=== PATIENT | male | born 1940 ===

== ENCOUNTER → 2023-03-04 11:32 | Outpatient (CLI) | payer MEDICARE, OTHER, SELFPAY ==
--- NOTE | 2023-03-04 11:35 | DI.RAD.S_ITS ---
PROCEDURE: XR FINGER RT MIN 2V INDICATIONS: injury to right little finger TECHNIQUE: AP hand, 2 views of the 5th finger(s) acquired. COMPARISON: None. FINDINGS: Bones: No fractures or dislocations. No suspicious bony lesions. Arthritic PIP and DIP joint space narrowing with small marginal osteophytes present. Mild periarticular PIP soft tissue swelling. No fracture. Soft tissues: No suspicious soft tissue calcifications. IMPRESSION: Degenerative changes without fracture. Approved by: Alexis Weeks M.D. on 03/04/2023 at 17:39
[2023-03-04 12:37] LABS: Hemoglobin A1C% w Est Avg Glu 5.6 % (4.0-6.0)
[2023-03-04 12:40] LABS: Add Manual Diff / Slide Review NO; Basophils Absolute Auto 0 /uL (0-100); Basophils Percent Auto 0.8 % (0-2); Eosinophils Absolute Auto 100 /uL (0-450); Hematocrit 39.5 % (41-53); Hemoglobin 13.3 g/dL (13.5-17.5); Lymphocytes Absolute Auto 1200 /uL (1100-4500); Lymphocytes Percent Auto 27.7 % (25-40); Mean Corpuscular HGB Conc 33.8 % (30-36); Mean Corpuscular Hemoglobin 29.9 PG (26-34); Mean Corpuscular Volume 88.4 fL (80-100); Monocytes Absolute Auto 400 /uL (0-900); Monocytes Percent Auto 10.4 % (3-14); Neutrophils Absolute Auto 2500 /uL (1500-7000); Neutrophils Percent Auto 58.1 % (50-75); Platelet Count 178 X10^3/uL (150-400); Red Blood Cell Count 4.46 X10^6/uL (4.5-5.9); Red Cell Distribution Width 13.9 % (11.6-14.8); White Blood Cell Count 4.2 X10^3/uL (4.5-11.0)
[2023-03-04 12:43] LABS: Alanine Aminotransferase 27 IU/L (<50); Albumin 4.3 g/dL (3.5-5.0); Albumin Globulin Ratio 1.3 (1.0-2.8); Alkaline Phosphatase 62 U/L (38-126); Aspartate Aminotransferase 29 IU/L (17-59); BUN Creatinine Ratio 26.8 (6-22); Bilirubin Total 0.6 mg/dL (0.2-1.3); Blood Urea Nitrogen 30 mg/dL (9-20); Calcium 10.1 mg/dL (8.4-10.2); Carbon Dioxide 30 mmol/L (22-32); Chloride 104 mmol/L (98-107); Cholesterol 202 mg/dL (140-199); Estimated Glomerular Filt Rate > 60 mL/min (>60); Globulin 3.2 g/dL (1.7-4.1); Glucose 101 mg/dL (80-110); HDL Cholesterol 35 mg/dL (40-60); HEMOLYSIS < 15 (0-50); LDL Cholesterol Calculated 146 mg/dL (<100); Potassium 3.9 mmol/L (3.4-5.1); Sodium 140 mmol/L (137-145); Total Protein 7.5 g/dL (6.3-8.2); Triglycerides 107 mg/dL (35-150)
[2023-03-04 13:44] LABS: TSH w/ Reflex to FT4 1.55 uIU/mL (0.47-4.68)
== END ==
PROVIDERS: PCP Family Medicine; Referring Provider Family Medicine; Visit Provider Family Medicine
DX: M79.644 Pain in right finger(s) (principal); Z86.39 Personal history of other endocrine, nutritional and metabolic disease; I10 Essential (primary) hypertension; R60.0 Localized edema; Z86.79 Personal history of other diseases of the circulatory system
CPT/HCPCS: 36415; 73140; 80053; 80061; 83036; 84443; 85025

== ENCOUNTER → 2023-09-12 15:20 | Outpatient (CLI) | payer MEDICARE, OTHER, SELFPAY ==
[2023-09-12 15:52] LABS: Add Manual Diff / Slide Review NO; Basophils Absolute Auto 0 /uL (0-100); Basophils Percent Auto 0.6 % (0-2); Eosinophils Absolute Auto 300 /uL (0-450); Eosinophils Percent Auto 3.4 % (2-4); Hematocrit 35.7 % (41-53); Hemoglobin 12.3 g/dL (13.5-17.5); Lymphocytes Absolute Auto 2100 /uL (1100-4500); Lymphocytes Percent Auto 28.2 % (25-40); Mean Corpuscular HGB Conc 34.4 % (30-36); Mean Corpuscular Hemoglobin 30.2 PG (26-34); Mean Corpuscular Volume 87.9 fL (80-100); Monocytes Absolute Auto 700 /uL (0-900); Monocytes Percent Auto 9.8 % (3-14); Neutrophils Absolute Auto 4300 /uL (1500-7000); Platelet Count 220 X10^3/uL (150-400); Red Blood Cell Count 4.06 X10^6/uL (4.5-5.9); Red Cell Distribution Width 13.9 % (11.6-14.8); White Blood Cell Count 7.4 X10^3/uL (4.5-11.0)
[2023-09-12 16:29] LABS: Alanine Aminotransferase 27 IU/L (<50); Albumin 4.4 g/dL (3.5-5.0); Albumin Globulin Ratio 1.5 (1.0-2.8); Alkaline Phosphatase 75 U/L (38-126); Aspartate Aminotransferase 27 IU/L (17-59); Bilirubin Total 0.5 mg/dL (0.2-1.3); Blood Urea Nitrogen 35 mg/dL (9-20); Calcium 9.5 mg/dL (8.4-10.2); Carbon Dioxide 27 mmol/L (22-32); Chloride 104 mmol/L (98-107); Estimated Glomerular Filt Rate > 60 mL/min (>60); Globulin 2.9 g/dL (1.7-4.1); Glucose 93 mg/dL (80-110); HEMOLYSIS < 15 (0-50); Potassium 3.9 mmol/L (3.4-5.1); Sodium 139 mmol/L (137-145); Total Protein 7.3 g/dL (6.3-8.2)
[2023-09-12 16:51] LABS: TSH w/ Reflex to FT4 1.67 uIU/mL (0.47-4.68)
[2023-09-12 17:16] LABS: Vitamin B12 859 pg/mL (239-931)
[2023-09-12 17:20] LABS: Hep C Virus Ab w/Reflex Quant NEGATIVE s/c (NEGATIVE)
[2023-09-13 04:36] LABS: RPR Screen Non Reactive (Non Reactive)
[2023-09-13 14:13] LABS: Free Kappa Lt Chains, Serum 13.9 mg/L (3.3-19.4); Free Lambda Lt Chains,Serum 15.6 mg/L (5.7-26.3)
[2023-09-13 21:17] LABS: Hemoglobin A1C% w Est Avg Glu 5.6 % (4.0-6.0)
== END ==
PROVIDERS: PCP Family Medicine; Referring Provider Family Medicine; Visit Provider Family Medicine
DX: G62.9 Polyneuropathy, unspecified (principal); G60.9 Hereditary and idiopathic neuropathy, unspecified
CPT/HCPCS: 36415; 80053; 82607; 83036; 83516; 83883; 84443; 85025; 86592; 86803; 87535; 87538

== ENCOUNTER → 2024-02-27 11:02 | Outpatient (CLI) | payer MEDICARE, OTHER, SELFPAY ==
--- NOTE | 2024-02-27 11:04 | DI.RAD.S_ITS ---
PROCEDURE: XR HAND RT MIN 3V INDICATIONS: anatomic snuffbox tenderness, assess for fracture TECHNIQUE: 3 views of the hand(s) acquired. COMPARISON: None. FINDINGS: Bones: No fractures or dislocations. Osteoarthritic changes are noted throughout right hand and wrist joints with joint space narrowing, subchondral sclerosis. Subcortical cystic changes are noted at 1st CMC joint. No definite bony erosive changes. Carpal bones are normally aligned. No suspicious bony lesions. Soft tissues: No suspicious soft tissue calcifications. 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 No acute fracture or dislocation. No radiographic evidence of avascular necrosis. No definite bony erosive changes. Dictated by: Jeevan Francis M.D. on 02/27/2024 at 13:43 Approved by: Jeevan Francis M.D. on 02/27/2024 at 13:56
== END ==
PROVIDERS: PCP Family Medicine; Referring Provider Family Medicine; Visit Provider Family Medicine
DX: M19.041 Primary osteoarthritis, right hand (principal); M19.031 Primary osteoarthritis, right wrist; M79.643 Pain in unspecified hand
CPT/HCPCS: 73130

== ENCOUNTER 2024-03-09 10:54 | Emergency (ER) | payer MEDICARE, OTHER, SELFPAY ==
[2024-03-09] VITALS (11 sets, daily range): BP systolic 125–174; BP diastolic 59–119; PULSE 59–66; RESP 12–20; TEMP 36.7; O2SAT 92–96; BMI 33.9
--- NOTE | 2024-03-09 11:04 | DI.CT.S_ITS ---
PROCEDURE: CT HEAD/BRAIN WO CON INDICATIONS: dizziness and nausea TECHNIQUE: Noncontrast 4.5 mm thick angled axial sections acquired from the foramen magnum to the vertex, with coronal and sagittal reformats. For radiation dose reduction, the following was used: automated exposure control, adjustment of mA and/or kV according to patient size. COMPARISON: None. FINDINGS: Image quality: Diagnostic. CSF spaces: Basal cisterns are patent. No extra-axial fluid collections. The ventricles are symmetric in size and shape. Brain: No intracranial bleeds or masses. There is cerebral volume loss for age, with resultant ventricular and sulcal prominence. There are periventricular and deep white matter chronic small vessel ischemic changes. There is intracranial internal carotid artery atherosclerosis. Skull and face: Calvarium and visualized facial bones appear intact, without suspicious lesions. Sinuses: Visualized sinuses and mastoids are clear. IMPRESSION: No acute intracranial pathology. Dictated by: Lorenzo Ramos M.D. on 03/09/2024 at 12:15 Approved by: Lorenzo Ramos M.D. on 03/09/2024 at 12:15
--- NOTE | 2024-03-09 11:04 | EKG_ITS ---
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
--- NOTE | 2024-03-09 11:10 | ED_ITS ---
HPI - General Adult General Chief complaint: Dizziness Stated complaint: Dizzy, nausea Time Seen by Provider: 03/09/24 11:03 Source: patient Mode of arrival: Ambulatory History of Present Illness HPI narrative: Patient was an 83-year-old male. No history of CVA, arrhythmia, TIA, or heart attack. He has a history of hypertension and high cholesterol. Is here for evaluation of a couple days of dizziness. He describes it as an unsteadiness when he stands. It was not a vertigo sensation. Does have some sinus congestion. No sore throat. No chest pain. No shortness of breath. No numbness in his upper extremities. Has a history of neuropathy in his lower extremities and this is baseline for him. No rashes. Is have a slight headache. Has not tried anything for symptoms prior to arrival. Related Data Home Medications Medication Instructions Recorded Confirmed Atorvastatin Calcium (Lipitor) 10 mg PO Q DAY ##0 09/27/02/23/24 albuterol sulfate 90 mcg/actuation 2 puff inhalation Q4-6H PRN 01/19/23 02/23/24 aerosol inhaler (Ventolin HFA) gabapentin 600 mg tablet mg PO 09/12/23 02/23/24 Previous Rx's Medication Instructions Recorded amlodipine 5 mg tablet 5 mg PO DAILY #90 tabs 01/31/23 cetirizine 10 mg capsule (Zyrtec) 10 mg PO DAILY PRN allergy 06/15/23 symptoms #30 caps furosemide 40 mg tablet (Lasix) 40 mg PO DAILY #60 tabs 09/12/23 cyclobenzaprine 10 mg tablet 10 mg PO TID PRN muscle spasm #60 11/03/23 tabs omeprazole 40 mg capsule,delayed 40 mg PO BID #180 caps 11/08/23 release fluticasone propionate 50 1 spray intranasal BID #16 grams 01/19/24 mcg/actuation nasal spray,suspension (Flonase Allergy Relief) losartan 50 mg-hydrochlorothiazide 1 tab PO DAILY #90 tabs 01/31/24 12.5 mg tablet fluticasone 250 mcg-salmeterol 50 1 inh inhalation BID #60 ea 02/06/24 mcg/dose blistr powdr for inhalation colchicine 0.6 mg tablet 0.6 mg PO DAILY #90 tabs 02/23/24 naltrexone 50 mg tablet 12.5 mg (1/4 x 50 mg) PO DAILY #30 02/23/24 tabs zolpidem 10 mg tablet 10 mg PO BEDTIME PRN insomnia #30 02/23/24 tabs bupropion HCl 150 mg 24 hr tablet, 150 mg PO QAM #60 tabs 02/28/24 extended release (Wellbutrin XL) meclizine 25 mg tablet 25 mg PO BID PRN dizziness #10 tabs 03/09/24 Allergies Allergy/AdvReac Type Severity Reaction Status Date / Time No Known Allergies Allergy Verified 03/09/24 11:00 Review of Systems Review of Systems ROS Unobtainable: All systems reviewed & are unremarkable except as noted in HPI and below Patient History Medical History Insomnia Tenderness of anatomical snuffbox Obesity (BMI 30.0-34.9) Gout Knee pain Toenail deformity Peripheral neuropathy Esophageal web Barretts esophagus Postnasal drip Upper respiratory infection, acute (12/28/01) Pain in thoracic spine (01/22/02) Low back pain of thoracolumbar region with sciatica (01/04/02) Pain, joint, shoulder (12/28/01) Hyperlipidemia (04/19/02) Exam post high-risk rx (04/19/02) Dermatitis, unspecified (11/13/01) Cervicalgia (12/28/01) Asthma Foot pain Mumps Measles Chicken pox Surgical History (Updated 02/16/23 @ 21:49 by Ciera Sanchez) Anesthesia H/O right knee surgery History of throat surgery History of knee replacement Tumor of knee (~2006) Family History (Updated 02/16/23 @ 21:50 by Ciera Sanchez) Father Cancer History of heart disease Social History Smoking Status: Never smoker Smoking Status: Never smoker Exam Initial Vital Signs Initial Vital Signs: Vital Signs Temperature 98.1 F 03/09/24 10:55 Pulse Rate 66 03/09/24 10:55 Respiratory Rate 17 03/09/24 10:55 Blood Pressure 174/74 H 03/09/24 10:55 Pulse Oximetry 93 03/09/24 10:55 Oxygen Delivery Method Room Air 03/09/24 10:55 Const General: cooperative, comfortable and No ill appearing HENMT Head: normal to inspection and normocephalic Ears: hearing grossly normal bilaterally Eyes Pupils: PERRL EOM: EOM intact bilaterally Resp Effort & Inspection: normal respiratory effort Auscultation: clear to auscultation bilaterally Cardio Rate: regular rate Rhythm: regular rhythm GI Inspection: non-distended Skin General: no rashes or lesions noted Neuro General: patient alert, patient awake, patient oriented x3 and moves all extremities Cranial Nerves: CN's II-XI intact bilaterally Cognition: normal cognition Speech: speech normal Motor: muscle tone normal throughout Extrem General: capillary refill normal Course Orders Ordered: ED Orders 03/09/24 11:00 Complete Blood Count AUTO DIFF Stat Comprehensive Metabolic Panel Stat Lipase Stat Magnesium Stat Troponin & CK Cardiac Panel Stat 03/09/24 11:04 CT head/brain wo con Stat EKG-12 Lead Stat 03/09/24 12:24 MR stroke Stat Discontinued Medications Meclizine HCl (Meclizine Hcl 12.5 Mg Tablet) 25 mg PO NOW ONE Stop: 03/09/24 11:05 Last Admin: 03/09/24 11:16 Dose: 25 mg Documented By: BIJAL Ondansetron HCl (Ondansetron 4 Mg/2 Ml Inj) 4 mg IV NOW ONE Stop: 03/09/24 11:05 Last Admin: 03/09/24 11:16 Dose: 4 mg Documented By: BIJAL Vital Signs Vital signs: Vital Signs - 8 hr 03/09/24 10:55 03/09/24 10:59 03/09/24 11:00 Temperature 98.1 F Pulse Rate 66 Respiratory Rate 17 Blood Pressure 174/74 H 174/74 H 160/119 H Pulse Oximetry 93 Oxygen Delivery Method Room Air 03/09/24 11:00 03/09/24 11:30 03/09/24 11:31 Temperature Pulse Rate 65 60 Respiratory Rate 20 12 Blood Pressure 138/63 Pulse Oximetry 94 92 Oxygen Delivery Method 03/09/24 11:44 03/09/24 11:44 03/09/24 12:00 Temperature Pulse Rate 62 60 Respiratory Rate 12 14 Blood Pressure 165/68 H 142/65 H Pulse Oximetry 92 94 Oxygen Delivery Method 03/09/24 12:00 03/09/24 12:30 03/09/24 12:30 Temperature Pulse Rate 60 62 Respiratory Rate 14 Blood Pressure 156/67 H Pulse Oximetry 95 Oxygen Delivery Method 03/09/24 13:00 03/09/24 13:00 03/09/24 14:08 Temperature Pulse Rate 66 Respiratory Rate 14 18 Blood Pressure 136/62 Pulse Oximetry 94 Oxygen Delivery Method 03/09/24 14:08 03/09/24 14:30 03/09/24 14:30 Temperature Pulse Rate 59 L Respiratory Rate 18 Blood Pressure 137/59 L 125/59 L Pulse Oximetry 96 Oxygen Delivery Method Medical Decision Making Lab Data Lab results reviewed: Yes I reviewed the patient's lab results. 03/09/24 11:00 03/09/24 11:00 Labs: Lab Results 03/09/24 Range/Units 11:00 WBC 7.9 (4.5-11.0) X10^3/uL RBC 4.67 (4.5-5.9) X10^6/uL Hgb 14.0 (13.5-17.5) g/dL Hct 41.9 (41-53) % MCV 89.7 (80-100) fL MCH 29.9 (26-34) PG MCHC 33.4 (30-36) % RDW 14.4 (11.6-14.8) % Plt Count 189 (150-400) X10^3/uL Neut % (Auto) 68.8 (50-75) % Lymph % (Auto) 20.8 L (25-40) % Motley % (Auto) 9.3 (3-14) % Eos % (Auto) 0.5 L (2-4) % Baso % (Auto) 0.6 (0-2) % Neut # (Auto) 5400 (4953-1681) /uL Lymph # (Auto) 1600 (9626-4756) /uL Motley # (Auto) 700 (0-900) /uL Eos # (Auto) 0 (0-450) /uL Baso # (Auto) 100 (0-100) /uL Sodium 137 (137-145) mmol/L Potassium 3.9 (3.4-5.1) mmol/L Chloride 100 (98-107) mmol/L Carbon Dioxide 28 (22-32) mmol/L BUN 36 H (9-20) mg/dL Creatinine 1.49 H (0.66-1.25) mg/dL Estimated GFR 46 L (>60) mL/min BUN/Creatinine Ratio 24.2 H (6-22) Glucose 113 H (80-110) mg/dL Calcium 9.8 (8.4-10.2) mg/dL Magnesium 1.7 (1.6-2.3) mg/dL Total Bilirubin 0.7 (0.2-1.3) mg/dL AST 49 (17-59) IU/L ALT 63 H (<50) IU/L Alkaline Phosphatase 69 (38-126) U/L Total Creatine Kinase 111 (55-170) U/L Troponin I < 0.012 (0.01-0.034) ng/mL Total Protein 7.4 (6.3-8.2) g/dL Albumin 4.6 (3.5-5.0) g/dL Globulin 2.8 (1.7-4.1) g/dL Albumin/Globulin Ratio 1.6 (1.0-2.8) Lipase 68 (23-300) U/L Imaging Data CT scan - head: Radiologist's Impression: PROCEDURE: CT HEAD/BRAIN WO CON INDICATIONS: dizziness and nausea TECHNIQUE: Noncontrast 4.5 mm thick angled axial sections acquired from the foramen magnum to the vertex, with coronal and sagittal reformats. For radiation dose reduction, the following was used: automated exposure control, adjustment of mA and/or kV according to patient size. COMPARISON: None. FINDINGS: Image quality: Diagnostic. CSF spaces: Basal cisterns are patent. No extra-axial fluid collections. The ventricles are symmetric in size and shape. Brain: No intracranial bleeds or masses. There is cerebral volume loss for age, with resultant ventricular and sulcal prominence. There are periventricular and deep white matter chronic small vessel ischemic changes. There is intracranial internal carotid artery atherosclerosis. Skull and face: Calvarium and visualized facial bones appear intact, without suspicious lesions. Sinuses: Visualized sinuses and mastoids are clear. IMPRESSION: No acute intracranial pathology. Brain MRI: Radiologist's Impression: PROCEDURE: MR STROKE Pre- and post-contrast brain MRI, non-contrast brain MR angiogram, pre- and postcontrast neck MR angiogram INDICATIONS: dizziness and headache TECHNIQUE: Brain: Noncontrast axial T1 spin echo, axial T2 fast spin echo, sagittal and axial FLAIR, coronal T2 fast spin echo, axial gradient echo, axial diffusion and ADC through the brain. After the administration of contrast, axial 3D VIBE of the cranial vasculature and brain. Brain MRA: Non-contrast 3-D time of flight MR angiogram, with multiple dcoecdy-djmibtspa-ftgfavkkxr (MIP) reformats performed. Neck MRA: Axial and sagittal TruFISP through the neck. Coronal dynamic MR angiogram during administration of contrast in the arterial and venous phases, with 3- dimenstional nblmrna-xdfhelnqo-bdreonuzeu (MIP) reformats constructed from subtraction images. COMPARISON: [facility], CT, CT HEAD/BRAIN WO CON, 03/09/2024, 11:39. FINDINGS: Image quality: Excellent. BRAIN: CSF spaces: Ventricles are normal in size and shape. Basal cisterns are patent. No extra-axial fluid collections. Brain: No intracranial bleeds or mass effects. Ornelas-white matter interface is normal. Diffusion weighted images show no acute infarct. Age-related volume loss and mild, age-appropriate small-vessel ischemic change. Brainstem appears normal. Normal intravascular flow voids are present. No abnormal intracranial enhancement. Skull and face: Calvarial marrow signal is normal. Orbits appear normal. Sinuses: Sinuses and mastoids are clear. BRAIN MR ANGIOGRAM: Anterior circulation: Intracranial internal carotid arteries are normal in size and enhancement. The flow within the paired anterior cerebral arteries is normal and symmetric. The flow within the middle cerebral arteries is normal and symmetric. The anterior communicating artery is seen. No stenoses, occlusions, or aneurysms. Posterior circulation: The visualized portions of the vertebral arteries demonstrate normal caliber, and join to form a normal appearing basilar artery. The flow within the posterior cerebral arteries is normal and symmetric. No stenoses, occlusions, or aneurysms. NECK MR ANGIOGRAM: Carotids: Great vessels demonstrate a conventional anatomy as they arise from the aortic arch. The origins of the common carotid arteries appear patent. The calibers and courses of both common carotid arteries are normal. The bifurcation regions appear normal bilaterally. The internal carotid arteries demonstrate normal course and caliber. Posterior circulation: The origins of the vertebral arteries appear patent. More superior portions of both vertebral arteries demonstrate normal course and caliber, and join to form a normal appearing basilar artery. Miscellaneous: Subclavian arteries appear patent. Pre-contrast images through the neck show no soft tissue abnormalities. IMPRESSION: BRAIN MRI: No acute intracranial process. No acute stroke. Normal age-related findings. BRAIN MR ANGIOGRAM: No stenosis, aneurysm, occlusion, or focal filling defect. NECK MR ANGIOGRAM: Patent carotids. ECG Data Attestation: I personally reviewed and interpreted this ECG as follows: Interpretation: Sinus rhythm Ventricular rate of 62 [place] [address] QRS No ST T wave changes* MDM Narrative Medical decision making narrative: Workup here in the emergency department is fairly unremarkable. His head CT and also MR of his brain showed no signs of an acute intracranial pathology. His labs are unremarkable. Sinus rhythm on his EKG. Suspicion for a central neurologic process. No indication for admission in the hospital. He was having some URI symptoms. We discussed potentially trying an snsa-gue-hurqhsm antihistamine such as Claritin or Zyrtec and will also send home with a prescription for meclizine for symptom control. Advised that the patient contact his primary doctor for follow-up. He was given return precautions. He expressed understanding and agreement. Discharge Plan Departure Patient Disposition: Home Clinical Impression: Dizziness Instructions: DI for Dizziness-Nonvertigo Activity Restrictions/Additional Instructions: Continue to take all of your medications as directed. I do recommend that you start taking a antihistamine such as Claritin or Zyrtec. These medications can be purchased nraq-tby-[id number]. Contact your primary care doctor for a follow- up. Return to the emergency department for new or worsening symptoms. Prescriptions: New meclizine 25 mg tablet 25 mg PO BID PRN (Reason: dizziness) Qty: 10 0RF No Action Zyrtec 10 mg capsule 10 mg PO DAILY PRN (Reason: allergy symptoms) Qty: 30 0RF gabapentin 600 mg tablet PO furosemide [Lasix] 40 mg tablet 40 mg PO DAILY Qty: 60 3RF zolpidem 10 mg tablet 10 mg PO BEDTIME MDD 1 tablet daily PRN (Reason: insomnia) Qty: 30 2RF colchicine 0.6 mg tablet 0.6 mg PO DAILY Qty: 90 3RF naltrexone 50 mg tablet 12.5 mg PO DAILY Qty: 30 0RF Atorvastatin Calcium (Lipitor) 10 mg PO Q DAY Qty: 0 amlodipine 5 mg tablet 5 mg PO DAILY Qty: 90 1RF cyclobenzaprine 10 mg tablet 10 mg PO TID PRN (Reason: muscle spasm) Qty: 60 0RF omeprazole 40 mg capsule,delayed release(DR/EC) 40 mg PO BID MDD 2 tablets Qty: 180 4RF fluticasone propionate [Flonase Allergy Relief] 50 mcg/actuation spray,suspension 1 spray intranasal BID Qty: 16 3RF Rx Instructions: administer into each nostril losartan-hydrochlorothiazide 50-12.5 mg tablet 1 tab PO DAILY Qty: 90 4RF fluticasone propion-salmeterol 250-50 mcg/dose blister with device 1 inh inhalation BID Qty: 60 2RF bupropion HCl [Wellbutrin XL] 150 mg tablet extended release 24 hr 150 mg PO QAM Qty: 60 0RF albuterol sulfate [Ventolin HFA] 90 mcg/actuation HFA aerosol inhaler 2 puff inhalation Q4-6H PRN Referrals: Magaly Stinson MD [Primary Care Provider] - Stand Alone Forms: Patient Portal/API/Survey
[2024-03-09 11:14] LABS: Add Manual Diff / Slide Review NO; Basophils Absolute Auto 100 /uL (0-100); Basophils Percent Auto 0.6 % (0-2); Eosinophils Absolute Auto 0 /uL (0-450); Eosinophils Percent Auto 0.5 % (2-4); Hematocrit 41.9 % (41-53); Lymphocytes Absolute Auto 1600 /uL (1100-4500); Lymphocytes Percent Auto 20.8 % (25-40); Mean Corpuscular HGB Conc 33.4 % (30-36); Mean Corpuscular Hemoglobin 29.9 PG (26-34); Mean Corpuscular Volume 89.7 fL (80-100); Monocytes Absolute Auto 700 /uL (0-900); Monocytes Percent Auto 9.3 % (3-14); Neutrophils Absolute Auto 5400 /uL (1500-7000); Neutrophils Percent Auto 68.8 % (50-75); Platelet Count 189 X10^3/uL (150-400); Red Blood Cell Count 4.67 X10^6/uL (4.5-5.9); Red Cell Distribution Width 14.4 % (11.6-14.8); White Blood Cell Count 7.9 X10^3/uL (4.5-11.0)
[2024-03-09] MEDS: ONDANSETRON 4 MG/2 ML INJ IV (11:16)
[2024-03-09] MEDS: MECLIZINE HCL 12.5 MG TABLET 25 MG PO (11:16)
[2024-03-09 11:29] LABS: Alanine Aminotransferase 63 IU/L (<50); Albumin 4.6 g/dL (3.5-5.0); Albumin Globulin Ratio 1.6 (1.0-2.8); Alkaline Phosphatase 69 U/L (38-126); Aspartate Aminotransferase 49 IU/L (17-59); BUN Creatinine Ratio 24.2 (6-22); Bilirubin Total 0.7 mg/dL (0.2-1.3); Blood Urea Nitrogen 36 mg/dL (9-20); Calcium 9.8 mg/dL (8.4-10.2); Carbon Dioxide 28 mmol/L (22-32); Chloride 100 mmol/L (98-107); Creatine Kinase 111 U/L (55-170); Estimated Glomerular Filt Rate 46 mL/min (>60); Globulin 2.8 g/dL (1.7-4.1); Glucose 113 mg/dL (80-110); HEMOLYSIS < 15 (0-50); Lipase 68 U/L (23-300); Magnesium 1.7 mg/dL (1.6-2.3); Potassium 3.9 mmol/L (3.4-5.1); Sodium 137 mmol/L (137-145); Total Protein 7.4 g/dL (6.3-8.2)
[2024-03-09 11:41] LABS: Troponin I < 0.012 ng/mL (0.01-0.034)
--- NOTE | 2024-03-09 12:24 | DI.MRI.S_ITS ---
PROCEDURE: MR STROKE Pre- and post-contrast brain MRI, non-contrast brain MR angiogram, pre- and postcontrast neck MR angiogram INDICATIONS: dizziness and headache TECHNIQUE: Brain: Noncontrast axial T1 spin echo, axial T2 fast spin echo, sagittal and axial FLAIR, coronal T2 fast spin echo, axial gradient echo, axial diffusion and ADC through the brain. After the administration of contrast, axial 3D VIBE of the cranial vasculature and brain. Brain MRA: Non-contrast 3-D time of flight MR angiogram, with multiple xmmkzyn-orimaogqa-wjkyosdqyz (MIP) reformats performed. Neck MRA: Axial and sagittal TruFISP through the neck. Coronal dynamic MR angiogram during administration of contrast in the arterial and venous phases, with 3-dimenstional qwpxkmr-yuktrfyrd-kyohoognog (MIP) reformats constructed from subtraction images. COMPARISON: [facility], CT, CT HEAD/BRAIN WO CON, 03/09/2024, 11:39. FINDINGS: Image quality: Excellent. BRAIN: CSF spaces: Ventricles are normal in size and shape. Basal cisterns are patent. No extra-axial fluid collections. Brain: No intracranial bleeds or mass effects. Ornelas-white matter interface is normal. Diffusion weighted images show no acute infarct. Age-related volume loss and mild, age-appropriate small-vessel ischemic change. Brainstem appears normal. Normal intravascular flow voids are present. No abnormal intracranial enhancement. Skull and face: Calvarial marrow signal is normal. Orbits appear normal. Sinuses: Sinuses and mastoids are clear. BRAIN MR ANGIOGRAM: Anterior circulation: Intracranial internal carotid arteries are normal in size and enhancement. The flow within the paired anterior cerebral arteries is normal and symmetric. The flow within the middle cerebral arteries is normal and symmetric. The anterior communicating artery is seen. No stenoses, occlusions, or aneurysms. Posterior circulation: The visualized portions of the vertebral arteries demonstrate normal caliber, and join to form a normal appearing basilar artery. The flow within the posterior cerebral arteries is normal and symmetric. No stenoses, occlusions, or aneurysms. NECK MR ANGIOGRAM: Carotids: Great vessels demonstrate a conventional anatomy as they arise from the aortic arch. The origins of the common carotid arteries appear patent. The calibers and courses of both common carotid arteries are normal. The bifurcation regions appear normal bilaterally. The internal carotid arteries demonstrate normal course and caliber. Posterior circulation: The origins of the vertebral arteries appear patent. More superior portions of both vertebral arteries demonstrate normal course and caliber, and join to form a normal appearing basilar artery. Miscellaneous: Subclavian arteries appear patent. Pre-contrast images through the neck show no soft tissue abnormalities. IMPRESSION: BRAIN MRI: No acute intracranial process. No acute stroke. Normal age-related findings. BRAIN MR ANGIOGRAM: No stenosis, aneurysm, occlusion, or focal filling defect. NECK MR ANGIOGRAM: Patent carotids. Dictated by: Lorenzo Ramos M.D. on 03/09/2024 at 14:16 Approved by: Lorenzo Ramos M.D. on 03/09/2024 at 14:20
== END 2024-03-09 14:50 | disposition home or self-care (01) ==
PROVIDERS: Emergency Provider Emergency Medicine; PCP Family Medicine
DX: R42 Dizziness and giddiness (principal); R51.9 Headache, unspecified; I10 Essential (primary) hypertension; E78.5 Hyperlipidemia, unspecified
CPT/HCPCS: 36415; 70450; 70544; 70549; 70553; 80053; 82550; 83690; 83735; 84484; 85025; 93005; 96374; 99284; 99285; A9579; J2405

== ENCOUNTER → 2025-02-12 08:07 | Outpatient (CLI) | payer MEDICARE, OTHER, SELFPAY ==
--- NOTE | 2025-02-12 08:10 | DI.RAD.S_ITS ---
PROCEDURE: XR RIBS LT MIN 3V W CXR1V INDICATIONS: Posterior 7 through 9 rib pain, fall TECHNIQUE: 2 views of the ribs were acquired, along with a single view chest. COMPARISON: None. FINDINGS: Surgical changes and devices: None. Bones and chest wall: No fractures or dislocations. No suspicious bony lesions. Overlying soft tissues appear unremarkable. Lungs and pleura: No pleural effusions or pneumothorax. Lungs appear clear. Mediastinum: Mediastinal contours appear normal. Heart size is normal. IMPRESSION: No acute displaced rib fracture or pneumothorax. Approved by: Sandhya Lopez M.D.,Ph.D. on 02/12/2025 at 9:04
[2025-02-12 10:33] LABS: Alanine Aminotransferase 48 IU/L (<50); Albumin 4.3 g/dL (3.5-5.0); Albumin Globulin Ratio 1.8 (1.0-2.8); Alkaline Phosphatase 71 U/L (38-126); Blood Urea Nitrogen 21 mg/dL (9-20); Calcium 9.9 mg/dL (8.4-10.2); Carbon Dioxide 26 mmol/L (22-32); Chloride 103 mmol/L (98-107); Cholesterol 180 mg/dL (140-199); Estimated Glomerular Filt Rate > 60 mL/min (>60); Globulin 2.4 g/dL (1.7-4.1); Glucose 93 mg/dL (70-99); HDL Cholesterol 53 mg/dL (40-60); HEMOLYSIS < 15 (0-50); Potassium 4.2 mmol/L (3.4-5.1); Sodium 138 mmol/L (137-145); Total Protein 6.7 g/dL (6.3-8.2); Triglycerides 153 mg/dL (35-150)
== END ==
PROVIDERS: PCP Family Medicine; Referring Provider Nurse Practitioner Family; Visit Provider Nurse Practitioner Family
DX: R07.89 Other chest pain (principal); I10 Essential (primary) hypertension; E78.5 Hyperlipidemia, unspecified; W18.30XA Fall on same level, unspecified, initial encounter
CPT/HCPCS: 36415; 71101; 80053; 80061